=== PATIENT | male | born 1995 | race Caucasian/White ===

== ENCOUNTER 2016-04-21 23:40 | Emergency (ER) | payer BC ==
--- NOTE | 2016-04-22 01:53 | UC ---
UC General HPI - HPI Summary HPI Summary: TWO WEEKS OF LUMPS (BILATERAL) PELVIS. NO PAIN OR TENDERNESS UNLESS DEEPLY PRESSED ON. NO TRAUMA. NO FEVER. NO CAT SCRATCHES. NO RASHES OR TICK BITES. NO CHANGES IN SEXUAL PARTNER, TESTICULAR PAIN OR PENILE DISCHARGE. NO ABDOMINAL PAIN NAUSEA VOMITING OR DIARRHEA. NO RECENT COLD SYMPTOMS SORE THRAOT HEADACHE WEAKNESS OR MUSCLE ACHES. PATIENT STATES THAT THIS OCCURED AFTER AFTIVELY LIFING WEIGHTS BUT NO PAIN OR INJURY WERE NOTED. - History of Current Complaint Chief Complaint: EDGeneral Stated Complaint: LUMPS ON BOTH SIDES OF PELVIS Time Seen by Provider: 04/22/16 00:56 Hx Obtained From: Patient, Family/Medical Typist Onset/Duration: Gradual Onset, Lasting Weeks, Still Present Timing: Constant Onset Severity: Mild Current Severity: None Pain Intensity: 0 Associated Signs & Symptoms: Negative: Abdominal Pain, Back Pain, Confusion, Cough, Chest Pain, Decreased Responsiveness, Dizziness, Diarrhea, Dysuria, Diaphoresis, Edema, Fever, Headache, Immunocompromised, Nausea, Palpitations, Recent Medication Changes, Syncope, SOB, Trauma, Vomiting, Weakness - Allergy/Home Medications Allergies/Adverse Reactions: Allergies Allergy/AdvReac Type Severity Reaction Status Date / Time No Known Allergies Allergy Verified 04/21/16 23:54 PMH/Surg Hx/FS Hx/Imm Hx Previously Healthy: Yes - Family History Known Family History: Negative: Cardiac Disease, Renal Disease, Respiratory Disease, Blood Disorder - Social History Occupation: Employed Full-time Lives: With Family Review of Systems Constitutional: Negative Skin: Negative Eyes: Negative ENT: Negative Respiratory: Negative Cardiovascular: Negative Gastrointestinal: Negative Genitourinary: Negative Motor: Negative Neurovascular: Negative Musculoskeletal: Negative Neurological: Negative Psychological: Negative All Other Systems Reviewed And Are Negative: Yes - Comments Additional Review of Systems Comments: BILATERAL SWELLING OF INGUINAL LYMPHNODES. NODES THEMSELVES NONTENDER. NO EVEDENCE OF INGUINAL HERNIA BILATERALLY. NO SCROTAL OR PENILE TENDERNESS NO RASHES OR LESIONS. NO ABDOMINAL TENDERNESS OR PAIN. Physical Exam Triage Information Reviewed: Yes Appearance: Well-Appearing, No Pain Distress, Well-Nourished Vital Signs: Initial Vital Signs Temp 98.6 F 04/21/16 23:50 Pulse 84 04/21/16 23:50 Resp 16 04/21/16 23:50 BP 145/55 04/21/16 23:50 Pulse Ox 100 04/21/16 23:50 Vital Signs Reviewed: Yes Eye Exam: Normal ENT Exam: Normal ENT: Positive: Normal ENT inspection Dental Exam: Normal Neck exam: Normal Neck: Positive: Supple, Nontender Respiratory Exam: Normal Respiratory: Positive: Chest non-tender, Lungs clear, Normal breath sounds, No respiratory distress Cardiovascular Exam: Normal Cardiovascular: Positive: RRR, No Murmur Abdominal Exam: Normal Abdomen Description: Positive: Nontender, No Organomegaly Musculoskeletal Exam: Normal Neurological Exam: Normal Psychological Exam: Normal Psychological: Positive: Normal Response To Family Skin Exam: Normal - Additional Comments BILATERAL SWELLING OF INGUINAL LYMPHNODES. NODES THEMSELVES NONTENDER. NO EVEDENCE OF INGUINAL HERNIA BILATERALLY. NO SCROTAL OR PENILE TENDERNESS NO RASHES OR LESIONS. NO ABDOMINAL TENDERNESS OR PAIN. Course/Dx - Differential Dx - Multi-Symptom Differential Diagnoses: Urinary Tract Infection, Other - STD W/O RECENT CHANGGE IN SEXUAL PARTNER; Provider Diagnoses: LYMPHADENOPATHY Discharge - Discharge Plan Condition: Stable Disposition: HOME Prescriptions: Amoxicillin/Clavulanate TAB* [Augmentin TAB 875*] 875 mg PO BID #20 tab Patient Education Materials: Lymphadenopathy (ED) Referrals: [facility] [Outside] Thomas Marcos MD [Primary Care Provider] - Images Front/Back of Body, Lg ([place]): 1 - 1CM X 1CM NONTENDER ENLARGED INDURATED LN 2 - 1CM X 1CM NONTENDER ENLARGED INDURATED LN
[2016-04-22] MEDS ORDERED: Amoxicillin/Clavulanate TAB* 875 MG PO ONE (02:04)
[2016-04-22 02:18] LABS: Urine Bilirubin Negative (Negative); Urine Glucose Negative (Negative); Urine Nitrite Negative (Negative)
[2016-04-22 03:05] VITALS: BP 133/84
== END 2016-04-22 03:04 | disposition home or self-care (01) ==
LOC: ED 23:40
DX: R59.1 Generalized enlarged lymph nodes (principal)
CPT/HCPCS: 81003; 87491; 87591; 99282; A9270-GY

== ENCOUNTER 2016-08-02 15:15 | Emergency (ER) | payer SELFPAY | END 2016-08-02 16:19 | disposition left against medical advice (07) | LOC: UCEAST 15:15 | DX: R54 Age-related physical debility (principal); Z53.21 Procedure and treatment not carried out due to patient leaving prior to being seen by health care provider ==

== ENCOUNTER 2017-02-15 21:02 | Emergency (ER) | payer SELFPAY ==
[2017-02-15 21:17] VITALS: BP 121/61
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
== END 2017-02-16 01:45 ==
LOC: ED 21:02
DX: R51 Headache (principal); R04.0 Epistaxis; H92.09 Otalgia, unspecified ear; R05 Cough; F17.210 Nicotine dependence, cigarettes, uncomplicated
CPT/HCPCS: 70450; 70486; 71020; 72125; 99282

== ENCOUNTER → 2017-04-15 19:24 | Emergency (ER) | payer SELFPAY ==
[~2017-04-15 19:24] MED LIST: ALPRAZolam TAB* 0.5 MG PO ONE; Ibuprofen TAB* 200 MG PO ONE; Ibuprofen TAB* 600 MG PO ONE; Nicotine GUM* 2 MG ONE; Nicotine GUM* 2 MG PO PRN
[2017-04-15 19:32] VITALS: BP 124/65
[2017-04-15 20:43] LABS: Urine Appearance Cloudy; Urine Blood Negative (Negative); Urine Color Yellow; Urine Ketones 2+ (Negative); Urine Protein Negative (Negative); Urine Urobilinogen Negative (Negative)
[2017-04-15 20:53] LABS: ABS Basophils 0 10^3/ul (0-0.2); ABS Eosinophils 0 10^3/ul (0-0.6); ABS Lymphocytes 1.8 10^3/ul (1.0-4.8); ABS Neutrophils 7.6 10^3/ul (1.5-7.7); ABS Nucleated RBC 0 10^3/ul; Eosinophil % 0 % (0-6); Hematocrit 46 % (42-52); Hemoglobin 15.8 g/dl (14.0-18.0); Mean Corpuscular HGB Conc 35 g/dl (31-36); Mean Corpuscular Hemoglobin 30 pg (27-31); Mean Corpuscular Volume 87 fL (80-94); Mean Platelet Volume 7 um3 (7.4-10.4); Nucleated Red Blood Cells % 0.1; Platelet Count 285 10^3/ul (150-450); Red Blood Count 5.25 10^6/ul (4.0-5.4); Red Cell Distribution Width 13 % (10.5-15); White Blood Count 10.3 10^3/ul (3.5-10.8)
[2017-04-15 21:18] LABS: INR 1.05 (0.77-1.02)
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
== END ==
LOC: ED 19:24
DX: F32.9 Major depressive disorder, single episode, unspecified (principal)
CPT/HCPCS: 36415; 80053; 80307; 80320; 80329; 81003; 83605; 84443; 85025; 85610; 99284; A9270-GY; G0480

== ENCOUNTER 2018-12-22 00:07 | Emergency (ER) | payer SELFPAY ==
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
[2018-12-22 00:18] VITALS: BP 0/0
== END 2018-12-22 00:17 | disposition home or self-care (01) ==
LOC: ED 00:07
DX: S16.1XXA Strain of muscle, fascia and tendon at neck level, initial encounter (principal); R11.2 Nausea with vomiting, unspecified; F17.210 Nicotine dependence, cigarettes, uncomplicated; V49.9XXA Car occupant (driver) (passenger) injured in unspecified traffic accident, initial encounter; Y92.9 Unspecified place or not applicable
CPT/HCPCS: 99282

== ENCOUNTER 2019-02-06 12:09 | Emergency (ER) | payer SELFPAY ==
[2019-02-06 12:19] VITALS: BP 116/61
--- NOTE | 2019-02-06 12:20 | UC ---
Throat Pain/Nasal Michael HPI - HPI Summary HPI Summary: Nausea this week and has been taking OTC "Nazeem" for nausea. Started vomiting 2 days ago. Vomited 4 times in the pst 24 hours, no fever, no diarrhea. Mild sore throat. Last time he vomited was 0530 today. He has not tried to retain any fluids yet today. - History of Current Complaint Chief Complaint: UCGeneralIllness Stated Complaint: SORE THROAT Time Seen by Provider: 02/06/19 12:19 Hx Obtained From: Patient Onset/Duration: Gradual Onset Severity: Mild Pain Intensity: 1 Cough: None Associated Signs & Symptoms: Positive: Vomiting - Allergies/Home Medications Allergies/Adverse Reactions: Allergies Allergy/AdvReac Type Severity Reaction Status Date / Time No Known Allergies Allergy Verified 02/06/19 12:19 PMH/Surg Hx/FS Hx/Imm Hx Previously Healthy: Yes Other History Of: Negative For: Anticoagulant Therapy - Surgical History Surgical History: Yes Surgery Procedure, Year, and Place: hip surgery left at age 5 - Family History Known Family History: Negative: Cardiac Disease, Renal Disease, Respiratory Disease, Blood Disorder - Social History Occupation: Employed Full-time Alcohol Use: Daily Substance Use Type: None Smoking Status (MU): Current Every Day Smoker Review of Systems All Other Systems Reviewed And Are Negative: Yes ENT: Positive: Sore Throat Gastrointestinal: Positive: Vomiting - Last time he vomited was 0530 today. Has vomited 4 times in the past 24 hours, Nausea - Nausea for one week. Negative: Abdominal Pain Genitourinary: Positive: Negative Is Patient Immunocompromised?: No Physical Exam Triage Information Reviewed: Yes Appearance: Well-Appearing, No Pain Distress, Well-Nourished Vital Signs: Initial Vital Signs Temp 98.4 F 02/06/19 12:16 Pulse 71 02/06/19 12:16 Resp 16 02/06/19 12:16 BP 116/61 02/06/19 12:16 Pulse Ox 100 02/06/19 12:16 Vital Signs Reviewed: Yes Eyes: Positive: Conjunctiva Clear ENT: Positive: Hearing grossly normal, Pharyngeal erythema - Minimal tonsillar erythema, TMs normal, Uvula midline Neck: Positive: Supple, Nontender, No Lymphadenopathy Respiratory: Positive: Lungs clear, Normal breath sounds, No respiratory distress, No accessory muscle use Cardiovascular: Positive: RRR, No Murmur, Pulses Normal, Brisk Capillary Refill Abdomen Description: Positive: Nontender, No Organomegaly, Soft. Negative: CVA Tenderness (R), CVA Tenderness (L), Distended, Guarding, Hepatomegaly, McBurney' s Point Tenderness, Splenomegaly Bowel Sounds: Positive: Present Neurological Exam: Normal Psychological Exam: Normal Skin Exam: Normal Throat Pain/Nasal Course/Dx - Course Course Of Treatment: Rapid strep test negative. I believe this is the viral "stomach bug" going around the community. - Differential Dx/Diagnosis Provider Diagnosis: Pharyngitis, Vomiting Discharge ED - Sign-Out/Discharge Documenting (check all that apply): Patient Departure All imaging exams completed and their final reports reviewed: No Studies - Discharge Plan Condition: Good Disposition: HOME Prescriptions: Ondansetron TAB* [Zofran 4 MG Tab*] 4 mg PO Q8H PRN #15 tab PRN Reason: Nausea Patient Education Materials: Acute Nausea and Vomiting (ED) Forms: *Work Release Referrals: German Perez MD [Primary Care Provider] - Additional Instructions: Increase fluids today...gingerale, jello, soup broth and gradually increase to regular diet. Avoid spicy and fatty foods for 1-2 days. Follow up with your primary care provider if no improvement if 2-3 days - Billing Disposition and Condition Condition: GOOD Disposition: Home
== END 2019-02-06 12:49 | disposition home or self-care (01) ==
LOC: UCEAST 12:09
DX: J02.9 Acute pharyngitis, unspecified (principal); F17.200 Nicotine dependence, unspecified, uncomplicated; R11.2 Nausea with vomiting, unspecified
CPT/HCPCS: 87651; 99212; G0463

== ENCOUNTER 2019-04-10 10:27 | Emergency (ER) | payer SELFPAY ==
[2019-04-10 10:39] VITALS: BP 118/70
--- NOTE | 2019-04-10 10:51 | UC ---
[facility] Dental HPI - HPI Summary HPI Summary: dental pain x 1 week pain is at left upper back molar pain is 8 out of 10 , worse with eating , better with Tylenol couldn't see his dentist - History of Current Complaint Chief Complaint: UCDentalProblem Stated Complaint: DENTAL, ABDOMINAL PAIN Time Seen by Provider: 04/10/19 10:35 Hx Obtained From: Patient Onset/Duration: Gradual Onset, Lasting Weeks - 1, Still Present Severity: Severe Pain Intensity: 8 Aggravating Factor(s): Cold, Chewing Alleviating Factor(s): Topical Meds Dental: 1 - tendeness - Allergies/Home Medications Allergies/Adverse Reactions: Allergies Allergy/AdvReac Type Severity Reaction Status Date / Time No Known Allergies Allergy Verified 04/10/19 10:37 PMH/Surg Hx/FS Hx/Imm Hx Previously Healthy: Yes Other History Of: Negative For: Anticoagulant Therapy - Surgical History Surgical History: Yes Surgery Procedure, Year, and Place: hip surgery left at age 5 - Family History Known Family History: Negative: Cardiac Disease, Renal Disease, Respiratory Disease, Blood Disorder - Social History Alcohol Use: Rare Substance Use Type: None Smoking Status (MU): Current Every Day Smoker Type: eCigarettes Review of Systems All Other Systems Reviewed And Are Negative: Yes Skin: Positive: Negative ENT: Positive: Dental Pain Respiratory: Positive: Negative Is Patient Immunocompromised?: No Physical Exam Triage Information Reviewed: Yes Appearance: Well-Appearing, No Pain Distress, Well-Nourished Vital Signs: Initial Vital Signs Temp 98.2 F 04/10/19 10:37 Pulse 77 04/10/19 10:37 Resp 18 04/10/19 10:37 BP 118/70 04/10/19 10:37 Pulse Ox 98 04/10/19 10:37 Vital Signs Reviewed: Yes Eye Exam: Normal Eyes: Positive: Conjunctiva Clear ENT: Positive: Normal ENT inspection, Hearing grossly normal, Pharynx normal Dental: Positive: Percussion Tenderness @ - #16, Dental Fracture @ - #16 Neck: Positive: Supple, Nontender, No Lymphadenopathy Respiratory: Positive: Chest non-tender, Lungs clear, Normal breath sounds Cardiovascular: Positive: RRR, No Murmur, Pulses Normal Abdominal Exam: Normal Abdomen Description: Positive: Nontender, Soft. Negative: CVA Tenderness (R), CVA Tenderness (L), Distended, Guarding Male Genital Exam: Positive: Normal Genitalia, Normal Prostate, No Hernia Musculoskeletal Exam: Normal Dental Complaint Course/Dx - Differential Dx/Diagnosis Provider Diagnosis: Pain, dental Discharge ED - Sign-Out/Discharge Documenting (check all that apply): Patient Departure All imaging exams completed and their final reports reviewed: No Studies - Discharge Plan Condition: Stable Disposition: HOME Prescriptions: Amoxicillin PO (*) [Amoxicillin 875 MG (*)] 875 mg PO BID #14 tab Patient Education Materials: Toothache (ED) Forms: *Work Release Referrals: German Perez MD [Primary Care Provider] - As Soon As Possible Additional Instructions: follow up with your dentist pretty - Billing Disposition and Condition Condition: STABLE Disposition: Home
== END 2019-04-10 10:55 | disposition home or self-care (01) ==
LOC: UCEAST 10:27
DX: K08.89 Other specified disorders of teeth and supporting structures (principal); F17.290 Nicotine dependence, other tobacco product, uncomplicated
CPT/HCPCS: 99212; G0463

== ENCOUNTER 2019-04-13 09:58 | Emergency (ER) | payer SELFPAY ==
[2019-04-13 10:05] VITALS: BP 108/65
== END 2019-04-13 11:31 | disposition left against medical advice (07) ==
LOC: UCEAST 09:58
DX: Z53.21 Procedure and treatment not carried out due to patient leaving prior to being seen by health care provider (principal)

== ENCOUNTER 2019-04-24 11:51 | Emergency (ER) | payer SELFPAY ==
--- NOTE | 2019-04-24 12:02 | UC ---
Dental HPI - HPI Summary HPI Summary: 23 yo male presents with dental pain. He tells me that he has a history of multiple dental cavities and failed root canals with fractured teeth. He states he does not have dental insurance and, thus, cannot see a dentist. This pain has been worsening over the last 2-3 weeks. He was seen here on 04/10/19 and placed on amoxicillin. He then saw his PCP a few days later due to pain and was given an rx for 7 days of norco and advised to f/u with a dentist. He has taken the norco and had great relief, but has run out. He called his PCP yesterday requesting more and pt states that noone got back to him. He is here today requesting pain medication. He has an appt with his PCP on 05/04, but has not scheduled with a dentist. Denies fever or chills. States tylenol and ibuprofen do not help. - History of Current Complaint Stated Complaint: DENTAL PAIN Time Seen by Provider: 04/24/19 11:57 Hx Obtained From: Patient Onset/Duration: Gradual Onset Severity: Moderate Pain Intensity: 7 Pain Scale Used: 0-10 Numeric - Allergies/Home Medications Allergies/Adverse Reactions: Allergies Allergy/AdvReac Type Severity Reaction Status Date / Time No Known Allergies Allergy Verified 04/24/19 12:06 PMH/Surg Hx/FS Hx/Imm Hx - Additional Past Medical History Additional PMH: None Other History Of: Negative For: Anticoagulant Therapy - Surgical History Surgical History: Yes Surgery Procedure, Year, and Place: hip surgery left at age 5 - Family History Known Family History: Negative: Cardiac Disease, Renal Disease, Respiratory Disease, Blood Disorder - Social History Occupation: Employed Full-time Lives: With Family Alcohol Use: Rare Substance Use Type: None Smoking Status (MU): Current Every Day Smoker Type: Taj Review of Systems All Other Systems Reviewed And Are Negative: No Constitutional: Positive: Negative Skin: Positive: Negative Eyes: Positive: Negative ENT: Positive: Dental Pain Respiratory: Positive: Negative Cardiovascular: Positive: Negative Neurovascular: Positive: Negative Neurological: Positive: Negative Psychological: Positive: Negative Physical Exam - Summary Physical Exam Summary: GENERAL: NAD. WDWN. No pain distress. SKIN: No rashes, sores, lesions, or open wounds. HEENT: Nose: Nasal mucosa pink and moist. NTTP maxillary and frontal sinus. Throat: Posterior oropharynx without exudates, erythema, or tonsillar enlargement. Uvula midline. NECK: Supple. Nontender. No lymphadenopathy. CHEST: CTAB. No r/r/w. No accessory muscle use. Breathing comfortably and in no distress. CV: RRR. Pulses intact. Cap refill <2seconds NEURO: Alert. PSYCH: Age appropriate behavior. Triage Information Reviewed: Yes Vital Signs: Vital Signs: Temp Pulse Resp BP Pulse Ox 97.2 F 66 16 106/72 97 04/24/19 12:06 04/24/19 12:06 04/24/19 12:06 04/24/19 12:06 04/24/19 12:06 Vital Signs Reviewed: Yes Dental: Positive: Gross Decay/Caries @ - throughout, Dental Fracture @ - Tooth # 15. Negative: Abscess @, Cellulitis @, Cervical Lymphadenopathy, Bleeding Dental Complaint Course/Dx - Course Course Of Treatment: Dental fracture tooth #15. istop:Reference #: [id number] Discussed importance of dental f/u. Will rx for norco for 2 days to allow him to contact his PCP on friday regarding extension of his pain medication. Discussed with pt that Urgent care will not be refilling director long term care narcotics for chronic conditions. - Differential Dx/Diagnosis Provider Diagnosis: Pain, dental Discharge ED - Sign-Out/Discharge Documenting (check all that apply): Patient Departure All imaging exams completed and their final reports reviewed: No Studies - Discharge Plan Condition: Stable Disposition: HOME Prescriptions: HYDROcodone/ACETAMIN 5-325 MG* [Beemer 5-325 TAB*] 1 tab PO Q8H PRN #6 tab MDD 3 PRN Reason: Pain - Severe Patient Education Materials: Toothache (ED) Referrals: German Perez MD [Primary Care Provider] - Additional Instructions: If you develop a fever, shortness of breath, chest pain, new or worsening symptoms - please call your PCP or go to the ED immediately. Please call your primary doctor on friday for refills of your pain medication - Billing Disposition and Condition Condition: STABLE Disposition: Home
[2019-04-24 12:11] VITALS: BP 106/72
== END 2019-04-24 12:29 | disposition home or self-care (01) ==
LOC: UCEAST 11:51
DX: K08.89 Other specified disorders of teeth and supporting structures (principal); F17.290 Nicotine dependence, other tobacco product, uncomplicated
CPT/HCPCS: 99212; G0463

== ENCOUNTER 2019-06-11 19:09 | Emergency (ER) | payer OTHER ==
--- NOTE | 2019-06-11 20:56 | UC ---
Respiratory Complaint HPI - HPI Summary HPI Summary: 24 yo male with a 2 day history of cough and runny nose no f/c mild DINERO and myalgia no cp or sob - History of Current Complaint Chief Complaint: UCRespiratory Stated Complaint: COUGH Time Seen by Provider: 06/11/19 20:51 Hx Obtained From: Patient Onset/Duration: Gradual Onset, Lasting Days Timing: Constant Severity Initially: Mild Severity Currently: Mild Pain Intensity: 0 Pain Scale Used: 0-10 Numeric Character: Cough: Nonproductive Aggravating Factors: Nothing Associated Signs And Symptoms: Positive: URI, Nasal Congestion - Allergies/Home Medications Allergies/Adverse Reactions: Allergies Allergy/AdvReac Type Severity Reaction Status Date / Time No Known Allergies Allergy Verified 06/11/19 20:46 Home Medications: Home Medications Benzonatate CAP* [Tessalon CAP*] 100 - 200 mg PO TID PRN #28 cap 06/11/19 [Rx] D-Methorphan/PE/Acetaminophen [Cold Multi-Symptom Gelcap] 1 each PO Q6H PRN [History Confirmed 06/11/19] Guaifenesin/Dextromethorphan [Mucinex Dm ER 600-30 mg Tablet] 1 each PO Q12H [History Confirmed 06/11/19] PMH/Surg Hx/FS Hx/Imm Hx Previously Healthy: Yes Other History Of: Negative For: Anticoagulant Therapy - Surgical History Surgical History: Yes Surgery Procedure, Year, and Place: hip surgery left at age 5 - Family History Known Family History: Negative: Cardiac Disease, Renal Disease, Respiratory Disease, Blood Disorder - Social History Alcohol Use: Weekly Substance Use Type: None Substance Use Comment - Amount & Last Used: daily Smoking Status (MU): Heavy Every Day Tobacco Smoker Type: eCigarettes Amount Used/How Often: 1 PP 4 days Review of Systems All Other Systems Reviewed And Are Negative: Yes Constitutional: Positive: Negative Skin: Positive: Negative Eyes: Positive: Negative ENT: Positive: Nasal Discharge Respiratory: Positive: Cough Cardiovascular: Positive: Negative Gastrointestinal: Positive: Negative Genitourinary: Positive: Negative Motor: Positive: Negative Neurovascular: Positive: Negative Musculoskeletal: Positive: Myalgia - mild Neurological/Mental Status: Positive: Headache - mild Psychological: Positive: Negative Physical Exam Triage Information Reviewed: Yes Appearance: Well-Appearing, No Pain Distress, Well-Nourished Vital Signs: Initial Vital Signs Temp 98.8 F 06/11/19 20:43 Pulse 74 06/11/19 20:43 Resp 16 06/11/19 20:43 BP 109/70 06/11/19 20:43 Pulse Ox 100 06/11/19 20:43 Vital Signs Reviewed: Yes Eyes: Positive: Conjunctiva Clear ENT: Positive: Hearing grossly normal, Pharyngeal erythema, Nasal congestion, Tonsillar swelling Neck: Positive: Supple, Nontender, Enlarged Nodes @ - ant cerv Respiratory: Positive: Lungs clear, Normal breath sounds, No respiratory distress Cardiovascular: Positive: RRR, No Murmur Musculoskeletal: Positive: ROM Intact, No Edema Neurological: Positive: Alert Psychological Exam: Normal Skin Exam: Normal Diagnostics - Laboratory Lab Results: strep (-) influenza (-) Respiratory Course/Dx - Differential Dx/Diagnosis Provider Diagnosis: Viral URI with cough Discharge ED - Sign-Out/Discharge Documenting (check all that apply): Patient Departure All imaging exams completed and their final reports reviewed: No Studies - Discharge Plan Condition: Stable Disposition: HOME Prescriptions: Benzonatate CAP* [Tessalon CAP*] 100 - 200 mg PO TID PRN #28 cap PRN Reason: Cough Patient Education Materials: Upper Respiratory Infection (ED) Referrals: German Perez MD [Primary Care Provider] - 5 Days (if not improved) Additional Instructions: rest fluids - Billing Disposition and Condition Condition: STABLE Disposition: Home
[2019-06-11 21:04] VITALS: BP 109/70
[2019-06-11 21:21] LABS: Influenza A Molecular Negative (Negative); Influenza B Molecular Negative (Negative)
[2019-06-11] MEDS ORDERED: Benzonatate CAP* 100 MG PO ONE (21:27)
== END 2019-06-11 21:53 | disposition home or self-care (01) ==
LOC: UCEAST 19:09
DX: J06.9 Acute upper respiratory infection, unspecified (principal); R05 Cough; F17.290 Nicotine dependence, other tobacco product, uncomplicated
CPT/HCPCS: 87651; 99212; A9270-GY; G0463